=== PATIENT | male | born 1990 | race Hispanic/Latino ===

== ENCOUNTER 2018-01-04 12:08 | Inpatient (IN) | payer SELFPAY ==
[~2018-01-04] VITALS: Ht 190.5 cm; Wt 167.8 kg
[2018-01-04 13:01] LABS: APPEARANCE,URINE Clear (CLEAR); BILIRUBIN,URINE Negative (NEGATIVE); COLOR,URINE Dark Yellow (YELLOW); GLUCOSE, URINE (UA) 500 mg/dL (NEGATIVE); KETONES,URINE Trace mg/dL (NEGATIVE); LEUKOCYTE ESTERASE ,URINE Negative (NEGATIVE); NITRATE,URINE Negative (NEGATIVE); OCCULT BLOOD,URINE Negative (NEGATIVE); PROTEIN,URINE Negative (NEGATIVE)
[2018-01-04 13:09] LABS: AMPHET/METH SCREEN,URINE NEGATIVE (NEGATIVE); BARBITURATE SCREEN, URINE NEGATIVE (NEGATIVE); BENZODIAZEPINES SCREEN,URINE NEGATIVE (NEGATIVE); CANNABINOID SCREEN,URINE NEGATIVE (NEGATIVE); COCAINE SCREEN,URINE NEGATIVE (NEGATIVE); OPIATE SCREEN,URINE NEGATIVE (NEGATIVE); PHENCYCLIDINE SCREEN,URINE NEGATIVE (NEGATIVE)
[2018-01-04 13:20] LABS: BASOPHILS % (AUTO) 0.5 % (0.0-5.0); EOSINOPHILS % (AUTO) 1.4 % (0.0-8.0); LYMPHOCYTES % (AUTO) 15.4 % (21.0-51.0); MEAN CORPUSCULAR HEMOGLOBIN 32.4 pg (27.0-33.0); MEAN CORPUSCULAR HGB CONC 35.8 g/dL (32.0-36.0); MEAN CORPUSCULAR VOLUME 90.5 fL (79-99); MONOCYTES % (AUTO) 5.8 % (3.0-13.0); NEUTROPHILS % (AUTO) 76.9 % (40.0-77.0); NUCLEATED RED BLOOD CELLS 0.5 % (0.0-0.19); PLATELET COUNT (AUTO) 235 K/uL (130-400); RED BLOOD CELL COUNT(AUTO) 2.28 MIL/uL (4.50-6.20); RED CELL DISTRIBUTION WIDTH 14.6 % (11.0-15.5); WHITE BLOOD COUNT (AUTO) 9.7 K/uL (4.8-10.8)
[2018-01-04 13:21] LABS: RBC,URINE 0-1 /HPF (0-1); WBC,URINE 0-1 /HPF (0-1)
[2018-01-04 13:22] LABS: BACTERIA,URINE Rare /HPF (None Seen); SQUAMOUS EPITHELIAL CELL,UR 0-2 /HPF (0-2)
[2018-01-04 13:46] LABS: CREATININE 0.9 mg/dL (0.5-1.5); POTASSIUM 3.8 mmol/L (3.5-5.1)
[2018-01-04 13:51] LABS: BILIRUBIN,TOTAL 3.8 mg/dL (0.2-1.0); HEMATOCRIT 20.6 % (42-54)
[2018-01-04 13:53] LABS: B-TYPE NATRIURETIC PEPTIDE 9 pg/mL (0-100)
[2018-01-04 15:42] LABS: RETICULOCYTE % (AUTO) 13.28 % (0.42-2.23)
[2018-01-04 16:08] LABS: % IRON SATURATION 90.8 % (30-44)
[2018-01-04 17:32] VITALS: BP 163/76
[2018-01-04] MEDS ORDERED: TRAMADOL HCL 50 MG TABLET ONE (18:14)
[2018-01-04] MEDS ORDERED: TRAMADOL HCL 50 MG TABLET PO PRN (18:15)
[2018-01-04] MEDS ORDERED: ACETAMINOPHEN 325 MG TAB PO PRN (18:15)
[2018-01-04 20:07] VITALS: BP 150/58
[2018-01-04] MEDS: HYDROCODONE/ACETAMINOPHEN 5/325 MG TAB PO PRN (20:14)
[2018-01-05] VITALS (7 sets, daily range): BP systolic 121–162; BP diastolic 60–81
[2018-01-05 04:53] LABS: BASOPHILS % (AUTO) 0.6 % (0.0-5.0); EOSINOPHILS % (AUTO) 1.6 % (0.0-8.0); LYMPHOCYTES % (AUTO) 15.3 % (21.0-51.0); MEAN CORPUSCULAR HEMOGLOBIN 33.1 pg (27.0-33.0); MEAN CORPUSCULAR HGB CONC 36.1 g/dL (32.0-36.0); MEAN CORPUSCULAR VOLUME 91.8 fL (79-99); MONOCYTES % (AUTO) 5.3 % (3.0-13.0); NEUTROPHILS % (AUTO) 77.2 % (40.0-77.0); NUCLEATED RED BLOOD CELLS 0.2 % (0.0-0.19); PLATELET COUNT (AUTO) 233 K/uL (130-400); RED BLOOD CELL COUNT(AUTO) 1.98 MIL/uL (4.50-6.20); RED CELL DISTRIBUTION WIDTH 15.6 % (11.0-15.5); WHITE BLOOD COUNT (AUTO) 9.4 K/uL (4.8-10.8)
[2018-01-05 05:01] LABS: HEMOGLOBIN A1C 5.4 % (4.0-6.0)
[2018-01-05 05:11] LABS: ALBUMIN 3.5 g/dL (3.5-5.0); BILIRUBIN,DIRECT 0.5 mg/dL (0.0-0.3); BILIRUBIN,TOTAL 4.3 mg/dL (0.2-1.0); CREATININE 0.9 mg/dL (0.5-1.5); POTASSIUM 3.6 mmol/L (3.5-5.1); TOTAL PROTEIN, SERUM 6.6 g/dL (6.0-8.3)
[2018-01-05 05:18] LABS: HEMATOCRIT 18.2 % (42-54)
[2018-01-05 05:53] LABS: % IRON SATURATION 95.7 % (30-44)
[2018-01-05] MEDS ORDERED: SODIUM CHLORIDE 0.9% 500ML 500 ML IV ONE (06:10)
[2018-01-05] MEDS: PANTOPRAZOLE SODIUM 40 MG TABLET.DR PO SCH (08:29)
[2018-01-05] MEDS: HYDROCODONE/ACETAMINOPHEN 5/325 MG TAB PO PRN (08:30)
[2018-01-05] MEDS: LISINOPRIL 10 MG TABLET PO SCH (08:42)
[2018-01-05 11:20] LABS: BASOPHILS % (AUTO) 0.7 % (0.0-5.0); EOSINOPHILS % (AUTO) 1.5 % (0.0-8.0); LYMPHOCYTES % (AUTO) 11.7 % (21.0-51.0); MEAN CORPUSCULAR HEMOGLOBIN 32.3 pg (27.0-33.0); MEAN CORPUSCULAR HGB CONC 35.7 g/dL (32.0-36.0); MEAN CORPUSCULAR VOLUME 90.5 fL (79-99); MONOCYTES % (AUTO) 6.3 % (3.0-13.0); NEUTROPHILS % (AUTO) 79.8 % (40.0-77.0); NUCLEATED RED BLOOD CELLS 0.2 % (0.0-0.19); PLATELET COUNT (AUTO) 244 K/uL (130-400); RED BLOOD CELL COUNT(AUTO) 2.15 MIL/uL (4.50-6.20); WHITE BLOOD COUNT (AUTO) 8.9 K/uL (4.8-10.8)
[2018-01-05 11:25] LABS: HEMATOCRIT 19.5 % (42-54)
[2018-01-05] MEDS ORDERED: SODIUM CHLORIDE 0.9% 250 ML IV ONE (12:23)
[2018-01-06 03:18] VITALS: BP 130/76
[2018-01-06 05:01] LABS: ALBUMIN 3.6 g/dL (3.5-5.0); BILIRUBIN,TOTAL 4.8 mg/dL (0.2-1.0); POTASSIUM 3.9 mmol/L (3.5-5.1); TOTAL PROTEIN, SERUM 6.9 g/dL (6.0-8.3)
[2018-01-06 05:14] LABS: HEMATOCRIT 19.6 % (42-54)
[2018-01-06] MEDS ORDERED: SODIUM CHLORIDE 0.9% 500ML 500 ML IV ONE (05:21)
[2018-01-06 08:00] VITALS: BP 129/70
[2018-01-06] MEDS: LISINOPRIL 10 MG TABLET PO SCH (08:27)
[2018-01-06] MEDS: PANTOPRAZOLE SODIUM 40 MG TABLET.DR PO SCH (08:27)
[2018-01-06 08:28] LABS: BASOPHILS % (AUTO) 0.7 % (0.0-5.0); LYMPHOCYTES % (AUTO) 11.8 % (21.0-51.0); MEAN CORPUSCULAR HGB CONC 36.8 g/dL (32.0-36.0); MEAN CORPUSCULAR VOLUME 92.4 fL (79-99); MONOCYTES % (AUTO) 6.4 % (3.0-13.0); NEUTROPHILS % (AUTO) 79.1 % (40.0-77.0); NUCLEATED RED BLOOD CELLS 0.4 % (0.0-0.19); PLATELET COUNT (AUTO) 218 K/uL (130-400); RED BLOOD CELL COUNT(AUTO) 2.13 MIL/uL (4.50-6.20); RED CELL DISTRIBUTION WIDTH 15.2 % (11.0-15.5); WHITE BLOOD COUNT (AUTO) 9.9 K/uL (4.8-10.8)
[2018-01-06 11:54] VITALS: BP 133/70
[2018-01-06 13:59] LABS: HEMATOCRIT 22.1 % (42-54)
[2018-01-06] MEDS: PREDNISONE 20 MG TABLET PO SCH ×2 (15:03→20:49)
[2018-01-06] MEDS: HYDROCODONE/ACETAMINOPHEN 5/325 MG TAB PO PRN (15:22)
[2018-01-06 16:43] VITALS: BP 136/64
[2018-01-06 19:27] VITALS: BP 140/83
[2018-01-06 20:11] LABS: HEMATOCRIT 24.4 % (42-54)
[2018-01-06 20:17] LABS: INR 1.02 (0.85-1.15); PROTHROMBIN TIME 10.7 SEC (9.6-11.6)
[2018-01-06 23:25] VITALS: BP 154/72
[2018-01-07] VITALS (12 sets, daily range): BP systolic 106–143; BP diastolic 60–80
[2018-01-07 04:56] LABS: HEMATOCRIT 23.5 % (42-54); MEAN CORPUSCULAR HEMOGLOBIN 31.5 pg (27.0-33.0); MEAN CORPUSCULAR HGB CONC 35.2 g/dL (32.0-36.0); MEAN CORPUSCULAR VOLUME 89.4 fL (79-99); NUCLEATED RED BLOOD CELLS 0.4 % (0.0-0.19); PLATELET COUNT (AUTO) 283 K/uL (130-400); RED BLOOD CELL COUNT(AUTO) 2.63 MIL/uL (4.50-6.20); RED CELL DISTRIBUTION WIDTH 15.4 % (11.0-15.5); WHITE BLOOD COUNT (AUTO) 14.1 K/uL (4.8-10.8)
[2018-01-07 05:07] LABS: BILIRUBIN,TOTAL 4.6 mg/dL (0.2-1.0); POTASSIUM 4.2 mmol/L (3.5-5.1); TOTAL PROTEIN, SERUM 7.8 g/dL (6.0-8.3)
[2018-01-07 05:12] LABS: BAND NEUTROPHILS % (MANUAL) 2 % (0-2); LYMPHOCYTES % (MANUAL) 16 % (22-44); MONOCYTES % (MANUAL) 2 % (2-9); SEGMENTED NEUTROPHILS % 80 % (40-70)
[2018-01-07 05:13] LABS: MAN.DIFF COMMENT-IMPRESSION MANUAL DIFFERENTIAL; PLATELET MORPHOLOGY COMMENT ADEQUATE
[2018-01-07] MEDS ORDERED: PREDNISONE 20 MG TABLET PO SCH (09:00)
[2018-01-07] MEDS ORDERED: MIDAZOLAM HCL 1 MG/ML 2ML VIAL ONE (09:08)
[2018-01-07] MEDS ORDERED: FENTANYL CITRATE PF 50 MCG/1 ML 2ML VIAL ONE (09:08)
[2018-01-07] MEDS ORDERED: LIDOCAINE HCL MPF 1% 5ML VIAL ONE (09:24)
[2018-01-07] MEDS: PANTOPRAZOLE SODIUM 40 MG TABLET.DR PO SCH (10:53)
[2018-01-07] MEDS: LISINOPRIL 10 MG TABLET PO SCH (10:53)
[2018-01-07] MEDS: LEVOFLOXACIN 500 MG TABLET PO SCH (10:53)
[2018-01-07] MEDS: PREDNISONE 20 MG TABLET PO SCH ×3 (10:56→21:10)
[2018-01-07] MEDS ORDERED: HYDRALAZINE HCL 20 MG/ML VIAL IV PRN (13:45)
[2018-01-08 03:57] VITALS: BP 138/52
[2018-01-08 04:34] LABS: BASOPHILS % (AUTO) 0.3 % (0.0-5.0); EOSINOPHILS % (AUTO) 1.3 % (0.0-8.0); LYMPHOCYTES % (AUTO) 9.7 % (21.0-51.0); MEAN CORPUSCULAR HEMOGLOBIN 31.2 pg (27.0-33.0); MONOCYTES % (AUTO) 6.3 % (3.0-13.0); NEUTROPHILS % (AUTO) 82.4 % (40.0-77.0); NUCLEATED RED BLOOD CELLS 0.2 % (0.0-0.19); PLATELET COUNT (AUTO) 282 K/uL (130-400); RED BLOOD CELL COUNT(AUTO) 2.28 MIL/uL (4.50-6.20); RED CELL DISTRIBUTION WIDTH 15.6 % (11.0-15.5); WHITE BLOOD COUNT (AUTO) 14.8 K/uL (4.8-10.8)
[2018-01-08 04:44] LABS: HEMATOCRIT 20.3 % (42-54)
[2018-01-08 04:55] LABS: ALBUMIN 3.8 g/dL (3.5-5.0); BILIRUBIN,TOTAL 4.5 mg/dL (0.2-1.0); POTASSIUM 4.2 mmol/L (3.5-5.1); TOTAL PROTEIN, SERUM 7.3 g/dL (6.0-8.3)
[2018-01-08 08:00] VITALS: BP 160/82
[2018-01-08 08:19] LABS: HEPATITIS A ANTIBODY IGM Negative (Negative); HEPATITIS B CORE IGM Negative (Negative); HEPATITIS Bs ANTIGEN SCREEN P Negative (Negative)
[2018-01-08] MEDS ORDERED: METOPROLOL TARTRATE 25 MG TAB ONE (10:35)
[2018-01-08] MEDS: PREDNISONE 20 MG TABLET PO SCH ×2 (10:43→13:55)
[2018-01-08] MEDS: PANTOPRAZOLE SODIUM 40 MG TABLET.DR PO SCH (10:43)
[2018-01-08] MEDS: LEVOFLOXACIN 500 MG TABLET PO SCH (10:44)
[2018-01-08] MEDS: METOPROLOL TARTRATE 25 MG TAB PO SCH ×2 (10:54→20:47)
[2018-01-08 11:00] VITALS: BP 135/82
[2018-01-08] MEDS ORDERED: LISINOPRIL 20 MG TABLET PO SCH (11:00)
[2018-01-08] MEDS ORDERED: DiphenhydrAMINE HCL 50 MG/ML VIAL IVP SCH (13:30)
[2018-01-08] MEDS ORDERED: FUROSEMIDE 10 MG/ML 2ML VIAL IVP SCH (13:30)
[2018-01-08 16:00] VITALS: BP 164/94
[2018-01-08 20:00] VITALS: BP 139/75
[2018-01-08] MEDS: METHYLPREDNISOLONE SOD SUCC 125MG/2ML VIAL IVP SCH (20:46)
[2018-01-08] MEDS ORDERED: METOPROLOL TARTRATE 25 MG TAB PO SCH (21:00)
[2018-01-09] VITALS: BP 121/56
[2018-01-09] MEDS: METHYLPREDNISOLONE SOD SUCC 125MG/2ML VIAL IVP SCH ×4 (02:51→20:19)
[2018-01-09 03:57] VITALS: BP 126/71
[2018-01-09 04:17] LABS: HEMATOCRIT 21.7 % (42-54); MEAN CORPUSCULAR HGB CONC 35.7 g/dL (32.0-36.0); MEAN CORPUSCULAR VOLUME 89.8 fL (79-99); NUCLEATED RED BLOOD CELLS 0.2 % (0.0-0.19); PLATELET COUNT (AUTO) 269 K/uL (130-400); RED BLOOD CELL COUNT(AUTO) 2.42 MIL/uL (4.50-6.20); RED CELL DISTRIBUTION WIDTH 16.1 % (11.0-15.5); WHITE BLOOD COUNT (AUTO) 16.8 K/uL (4.8-10.8)
[2018-01-09 04:32] LABS: BAND NEUTROPHILS % (MANUAL) 2 % (0-2); BASOPHILS % (MANUAL) 1 % (0-2); CREATININE 1.1 mg/dL (0.5-1.5); LYMPHOCYTES % (MANUAL) 9 % (22-44); MAN.DIFF COMMENT-IMPRESSION MANUAL DIFFERENTIAL; MONOCYTES % (MANUAL) 4 % (2-9); POTASSIUM 4.6 mmol/L (3.5-5.1); SEGMENTED NEUTROPHILS % 84 % (40-70)
[2018-01-09 04:34] LABS: PLATELET MORPHOLOGY COMMENT ADEQUATE
[2018-01-09 07:40] VITALS: BP 137/61
[2018-01-09] MEDS ORDERED: LISINOPRIL 20 MG TABLET PO SCH (09:00)
[2018-01-09] MEDS: PANTOPRAZOLE SODIUM 40 MG TABLET.DR PO SCH (11:12)
[2018-01-09] MEDS: LEVOFLOXACIN 500 MG TABLET PO SCH (11:12)
[2018-01-09] MEDS: METOPROLOL TARTRATE 25 MG TAB PO SCH ×2 (11:12→20:19)
[2018-01-09 11:26] VITALS: BP 144/76
[2018-01-09] MEDS: FOLIC ACID/VITAMIN B COMP W-C 1 MG CAPSULE PO SCH (12:56)
[2018-01-09 15:57] VITALS: BP 140/79
[2018-01-09 20:12] VITALS: BP 130/73
[2018-01-10] VITALS (7 sets, daily range): BP systolic 136–159; BP diastolic 57–80
[2018-01-10] MEDS: METHYLPREDNISOLONE SOD SUCC 125MG/2ML VIAL IVP SCH ×4 (02:58→21:39)
[2018-01-10 08:37] LABS: HEMATOCRIT 21.5 % (42-54); MEAN CORPUSCULAR HEMOGLOBIN 32.2 pg (27.0-33.0); MEAN CORPUSCULAR HGB CONC 34.7 g/dL (32.0-36.0); MEAN CORPUSCULAR VOLUME 92.7 fL (79-99); NUCLEATED RED BLOOD CELLS 0.3 % (0.0-0.19); PLATELET COUNT (AUTO) 277 K/uL (130-400); RED BLOOD CELL COUNT(AUTO) 2.32 MIL/uL (4.50-6.20); RED CELL DISTRIBUTION WIDTH 16.3 % (11.0-15.5); WHITE BLOOD COUNT (AUTO) 15.5 K/uL (4.8-10.8)
[2018-01-10 08:50] LABS: CREATININE 1.1 mg/dL (0.5-1.5); POTASSIUM 4.3 mmol/L (3.5-5.1)
[2018-01-10] MEDS: FOLIC ACID/VITAMIN B COMP W-C 1 MG CAPSULE PO SCH (08:55)
[2018-01-10] MEDS: PANTOPRAZOLE SODIUM 40 MG TABLET.DR PO SCH (08:56)
[2018-01-10] MEDS: LEVOFLOXACIN 500 MG TABLET PO SCH (08:56)
[2018-01-10] MEDS: METOPROLOL TARTRATE 25 MG TAB PO SCH ×2 (08:56→21:40)
[2018-01-10 09:07] LABS: BAND NEUTROPHILS % (MANUAL) 1 % (0-2); LYMPHOCYTES % (MANUAL) 5 % (22-44); METAMYELOCYTES % 3 % (0-0); MONOCYTES % (MANUAL) 3 % (2-9); SEGMENTED NEUTROPHILS % 88 % (40-70)
[2018-01-10 09:08] LABS: MAN.DIFF COMMENT-IMPRESSION MANUAL DIFFERENTIAL
[2018-01-10 09:09] LABS: PLATELET MORPHOLOGY COMMENT ADEQUATE
[2018-01-11 03:04] VITALS: BP 132/63
[2018-01-11 04:42] LABS: HEMATOCRIT 21.9 % (42-54); MEAN CORPUSCULAR HEMOGLOBIN 32.4 pg (27.0-33.0); MEAN CORPUSCULAR HGB CONC 34.7 g/dL (32.0-36.0); MEAN CORPUSCULAR VOLUME 93.4 fL (79-99); NUCLEATED RED BLOOD CELLS 0.4 % (0.0-0.19); PLATELET COUNT (AUTO) 276 K/uL (130-400); RED BLOOD CELL COUNT(AUTO) 2.35 MIL/uL (4.50-6.20); RED CELL DISTRIBUTION WIDTH 19.4 % (11.0-15.5); WHITE BLOOD COUNT (AUTO) 15.7 K/uL (4.8-10.8)
[2018-01-11 04:49] LABS: CREATININE 1.1 mg/dL (0.5-1.5); POTASSIUM 4.4 mmol/L (3.5-5.1)
[2018-01-11 05:28] LABS: BAND NEUTROPHILS % (MANUAL) 3 % (0-2); LYMPHOCYTES % (MANUAL) 8 % (22-44); MAN.DIFF COMMENT-IMPRESSION MANUAL DIFFERENTIAL; METAMYELOCYTES % 1 % (0-0); MONOCYTES % (MANUAL) 3 % (2-9); PLATELET MORPHOLOGY COMMENT ADEQUATE; SEGMENTED NEUTROPHILS % 85 % (40-70)
[2018-01-11 07:43] VITALS: BP 135/75
[2018-01-11] MEDS: FOLIC ACID/VITAMIN B COMP W-C 1 MG CAPSULE PO SCH (10:54)
[2018-01-11] MEDS: LEVOFLOXACIN 500 MG TABLET PO SCH (10:54)
[2018-01-11] MEDS: PANTOPRAZOLE SODIUM 40 MG TABLET.DR PO SCH (10:54)
[2018-01-11] MEDS: METOPROLOL TARTRATE 25 MG TAB PO SCH ×2 (10:55→20:08)
[2018-01-11 11:15] VITALS: BP 130/62
[2018-01-11] MEDS ORDERED: PREDNISONE 20 MG TABLET ONE (15:07)
[2018-01-11] MEDS ORDERED: PREDNISONE 20 MG TABLET PO STA (15:12)
[2018-01-11] MEDS ORDERED: PREDNISONE 20 MG TABLET PO SCH (15:15)
[2018-01-11 16:00] VITALS: BP 139/71
[2018-01-11] MEDS: HYDROCODONE/ACETAMINOPHEN 5/325 MG TAB PO PRN (18:26)
[2018-01-11] MEDS: PREDNISONE 20 MG TABLET PO SCH (20:08)
[2018-01-11 20:32] VITALS: BP 130/76
[2018-01-12 00:32] VITALS: BP 120/61
[2018-01-12 04:32] VITALS: BP 128/62
[2018-01-12 04:38] LABS: HEMATOCRIT 23.3 % (42-54); MEAN CORPUSCULAR HEMOGLOBIN 32.8 pg (27.0-33.0); MEAN CORPUSCULAR HGB CONC 34.6 g/dL (32.0-36.0); MEAN CORPUSCULAR VOLUME 94.8 fL (79-99); NUCLEATED RED BLOOD CELLS 0.2 % (0.0-0.19); PLATELET COUNT (AUTO) 211 K/uL (130-400); RED BLOOD CELL COUNT(AUTO) 2.46 MIL/uL (4.50-6.20); RED CELL DISTRIBUTION WIDTH 21.8 % (11.0-15.5); WHITE BLOOD COUNT (AUTO) 10.7 K/uL (4.8-10.8)
[2018-01-12 04:45] LABS: CREATININE 1.1 mg/dL (0.5-1.5); POTASSIUM 4.5 mmol/L (3.5-5.1)
[2018-01-12 04:55] LABS: LYMPHOCYTES % (MANUAL) 18 % (22-44); MAN.DIFF COMMENT-IMPRESSION MANUAL DIFFERENTIAL; MONOCYTES % (MANUAL) 6 % (2-9); PLATELET MORPHOLOGY COMMENT ADEQUATE; SEGMENTED NEUTROPHILS % 76 % (40-70)
[2018-01-12 07:46] VITALS: BP 129/78
[2018-01-12] MEDS: PANTOPRAZOLE SODIUM 40 MG TABLET.DR PO SCH (08:58)
[2018-01-12] MEDS: FOLIC ACID/VITAMIN B COMP W-C 1 MG CAPSULE PO SCH (08:58)
[2018-01-12] MEDS: LEVOFLOXACIN 500 MG TABLET PO SCH (08:58)
[2018-01-12] MEDS: PREDNISONE 20 MG TABLET PO SCH ×2 (08:59→18:32)
[2018-01-12] MEDS: METOPROLOL TARTRATE 25 MG TAB PO SCH ×2 (08:59→18:32)
[2018-01-12] MEDS: HYDROCODONE/ACETAMINOPHEN 5/325 MG TAB PO PRN (09:07)
[2018-01-12 11:00] VITALS: BP 121/61
[2018-01-12 16:00] VITALS: BP 136/66
[2018-01-12] MEDS ORDERED: PRED20TA3 PO (18:19)
[2018-01-12] MEDS ORDERED: METO25TA6 PO (18:20)
== END 2018-01-12 19:01 | disposition home or self-care (01) | DRG 809 ==
LOC: EDH 12:08 → EDHIP 12:09 → 4AH 17:17 → 4CH 01-05 08:22 → 4BH 01-09 21:37
PROVIDERS: ADMIT Hospitalist; ATTEND Hospitalist
PROC: 07DR3ZX Extraction of Iliac Bone Marrow, Percutaneous Approach, Diagnostic (ICD-10-PCS; principal; 2018-01-07)
PROC: 30233N1 Transfusion of Nonautologous Red Blood Cells into Peripheral Vein, Percutaneous Approach (ICD-10-PCS; 2018-01-07)
DX: D59.1 Other autoimmune hemolytic anemias (principal); Z68.42 Body mass index [BMI] 45.0-49.9, adult; D53.9 Nutritional anemia, unspecified; I10 Essential (primary) hypertension; E66.01 Morbid (severe) obesity due to excess calories; E11.9 Type 2 diabetes mellitus without complications; G47.00 Insomnia, unspecified; K59.00 Constipation, unspecified; K76.0 Fatty (change of) liver, not elsewhere classified; N20.0 Calculus of kidney; Z87.891 Personal history of nicotine dependence
CPT/HCPCS: 36415; 36430; 38222; 70450; 74176; 76705; 77012; 80048; 80053; 80061; 80074; 80076; 80305; 81001; 82248; 82270; 82595; 82607; 82728; 82746; 82948; 83010; 83036; 83540; 83550; 83615; 83880; 83883; 84165; 84484; 85014; 85018; 85025; 85097; 85610; 86277; 86334; 86701; 86850; 86900; 86901; 86922; 87390; 88305; 88311; 88313; 93005; 93306; 99152; 99291; J0360; J2250; J2930; J3010; J3490; J7030; J7040; P9016

== ENCOUNTER 2018-07-31 05:13 | Emergency (ER) | payer OTHER ==
[~2018-07-31 05:13] MED LIST: METO25TA6 PO; PRED20TA3 PO
[2018-07-31 05:54] LABS: BASOPHILS % (AUTO) 1.3 % (0.0-5.0); EOSINOPHILS % (AUTO) 2.5 % (0.0-8.0); HEMATOCRIT 25.6 % (42-54); LYMPHOCYTES % (AUTO) 10.1 % (21.0-51.0); MEAN CORPUSCULAR HEMOGLOBIN 34.5 pg (27.0-33.0); MEAN CORPUSCULAR HGB CONC 35.2 g/dL (32.0-36.0); NEUTROPHILS % (AUTO) 80.1 % (40.0-77.0); NUCLEATED RED BLOOD CELLS 0.1 % (0.0-0.19); PLATELET COUNT (AUTO) 242 K/uL (130-400); RED BLOOD CELL COUNT(AUTO) 2.62 MIL/uL (4.50-6.20); RED CELL DISTRIBUTION WIDTH 16.6 % (11.0-15.5); WHITE BLOOD COUNT (AUTO) 4.5 K/uL (4.8-10.8)
[2018-07-31 06:05] LABS: CREATININE 0.9 mg/dL (0.5-1.5)
[2018-07-31 06:12] LABS: ALBUMIN 3.6 g/dL (3.5-5.0); BILIRUBIN,TOTAL 1.9 mg/dL (0.2-1.0); TOTAL PROTEIN, SERUM 6.9 g/dL (6.0-8.3)
== END 2018-07-31 07:20 | disposition home or self-care (01) ==
LOC: EDH 05:13
DX: R42 Dizziness and giddiness (principal); D53.9 Nutritional anemia, unspecified; E11.9 Type 2 diabetes mellitus without complications; E78.5 Hyperlipidemia, unspecified; I10 Essential (primary) hypertension; Z72.0 Tobacco use; Z88.0 Allergy status to penicillin
CPT/HCPCS: 36415; 80053; 85025; 93005